=== PATIENT | male | born 1950 | race Caucasian/White ===

== ENCOUNTER 2020-05-20 06:38 | Emergency (ER) | payer MEDICARE, MEDICAID ==
[~2020-05-20] VITALS: Ht 185.4 cm; Wt 68.0 kg
[2020-05-20] MEDS ORDERED: IBUPROFEN 600MG TABLET PO ONE (07:15)
[2020-05-20 09:15] VITALS: BP 145/78
== END 2020-05-20 09:16 | disposition home or self-care (01) ==
LOC: ER 06:38
DX: M25.552 Pain in left hip (principal); I10 Essential (primary) hypertension
CPT/HCPCS: 73502; 99283